=== PATIENT | female | born 1990 | race Two or more races ===

== ENCOUNTER 2019-06-17 16:23 | Emergency (ER) | payer SELFPAY ==
[~2019-06-17] VITALS: Ht 160 cm; Wt 50.8 kg
[2019-06-17 16:45] VITALS: BP 103/55
[2019-06-17 16:55] LABS: BASO % 0 % (0-3); EOS # 0.1 x10^3/uL (0.0-0.7); EOS % 1 % (0-3); HEMATOCRIT 37.1 % (36.0-47.0); HEMOGLOBIN 12.8 g/dL (12.0-15.5); LYMPH # 2.3 x10^3/uL (1.0-4.8); LYMPH % 25 % (24-48); MEAN CORPUSCULAR HEMOGLOBIN 31 pg (25-35); MEAN CORPUSCULAR HGB CONC 34 g/dL (31-37); MEAN CORPUSCULAR VOLUME 88 fL (79-100); MONO # 0.5 x10^3/uL (0.0-1.1); MONO % 6 % (0-9); NEUT # 6.3 x10^3/uL (1.8-7.7); NEUT % 69 % (31-73); PLATELET COUNT 278 x10^3/uL (140-400); RED BLOOD COUNT 4.19 x10^6/uL (3.50-5.40); RED CELL DISTRIBUTION WIDTH 13.2 % (11.5-14.5); WHITE BLOOD COUNT 9.2 x10^3/uL (4.0-11.0)
[2019-06-17 16:56] LABS: BILIRUBIN,URINE NEGATIVE (NEG); CLARITY,URINE CLEAR; COLOR,URINE YELLOW; NITRITE,URINE NEGATIVE (NEG); PH,URINE 5.5; PROTEIN,URINE NEGATIVE (NEG-TRACE); UROBILINOGEN,URINE 0.2 mg/dL (0.2 mg/dL)
[2019-06-17 17:04] LABS: BARBITURATES NEG (NEG); BENZODIAZEPINES NEG (NEG); CANNABINOIDS NEG (NEG); COCAINE NEG (NEG); METHADONE NEG (NEG); OPIATES NEG (NEG); PHENCYCLIDINE NEG (NEG)
[2019-06-17 17:06] LABS: AMPHETAMINE/METHAMPHETAMINE NEG (NEG)
[2019-06-17 17:09] LABS: BACTERIA,URINE FEW /HPF (0-FEW); RBC,URINE 0 /HPF (0-2); SQUAMOUS EPITHELIAL CELL,UR MANY /LPF; YEAST,URINE PRESENT /HPF
[2019-06-17 17:12] LABS: CALCIUM 8.9 mg/dL (8.5-10.1); CREATININE 0.5 mg/dL (0.6-1.0); GFR 149.1; POTASSIUM 3.2 mmol/L (3.5-5.1)
[2019-06-17 17:17] LABS: ALBUMIN 3.8 g/dL (3.4-5.0); TOTAL BILIRUBIN 0.1 mg/dL (0.2-1.0); TOTAL PROTEIN 7.8 g/dL (6.4-8.2)
[2019-06-17] MEDS ORDERED: POTASSIUM CHLORIDE 20 MEQ TABLET.ER. PO ONE ×2 (17:30→18:30)
--- NOTE | 2019-06-17 17:58 | RAD ---
EXAM: OBSTETRIC ULTRASOUND, <14 WEEKS. HISTORY: Vaginal bleeding in . COMPARISON: None. FINDINGS: Sonographic evaluation of the pelvis was performed transabdominally and transvaginally. The uterus is anteverted and measures 9.7 x 5.8 x 6.7 cm. There is a single intrauterine gestation measuring 7 weeks 4 days. heart rate is 168 bpm. A yolk sac is visualized. The gestational sac is regular. There is no subchorionic collection. The right ovary is not visualized. The left ovary measures 2.8 x 2.5 x 1.7 cm. There is normal Doppler flow bilaterally. There is no adnexal mass. There is no significant free fluid. IMPRESSION: 1. Single intrauterine gestation measuring 7 weeks 4 day. heart rate 168 bpm. Electronically signed by: Mary Maldonado MD (06/17/2019 5:55 PM) [facility]
--- NOTE | 2019-06-17 18:22 | PHYS DOC ---
Past Medical History Past Medical History: No Pertinent History Past Surgical History: No Surgical History Alcohol Use: None Drug Use: None Adult General Chief Complaint Chief Complaint: VAGINAL BLEEDING HPI HPI Patient is a 28 year old female 2 para 2 who presented to the ED today concerned she could be , she did a home test which was positive. She is complaining of slight lower back pain as well as lower abdominal pain and trace amount of brownish discharge that began this morning. Denies any nausea or vomiting. Glove Cuffer line was used for [place] Review of Systems Review of Systems Constitutional: Denies fever or chills [] Eyes: Denies change in visual acuity, redness, or eye pain [] HENT: Denies nasal congestion or sore throat [] Respiratory: Denies cough or shortness of breath [] Cardiovascular: No additional information not addressed in HPI [] GI: Reports vaginal bleeding in , abdominal pain, denies nausea, vomiting, bloody stools or diarrhea [] : Denies dysuria or hematuria [] Musculoskeletal: Reports low back pain, joint pain [] Integument: Denies rash or skin lesions [] Neurologic: Denies headache, focal weakness or sensory changes [] All other systems were reviewed and found to be within normal limits, except as documented in this note. Current Medications Current Medications Current Medications Medications (Trade) Dose Ordered Sig/Kimberly Start Time Stop Time Status Last Admin Dose Admin Potassium Chloride (Klor-Con) 40 meq 1X ONCE 06/17/19 17:30 06/17/19 17:31 DC 06/17/19 17:39 40 MEQ Allergies Allergies Allergies Coded Allergies Type Severity Reaction Last Updated Verified No Known Drug Allergies 06/17/19 No Physical Exam Physical Exam Constitutional: Well developed, well nourished, no acute distress, non-toxic appearance. [] HENT: Normocephalic, atraumatic, bilateral external ears normal, oropharynx moist, no oral exudates, nose normal. [] Eyes: PERRLA, EOMI, conjunctiva normal, no discharge. [] Neck: Normal range of motion, no tenderness, supple, no stridor. [] Cardiovascular:Heart rate regular rhythm, no murmur [] Lungs & Thorax: Bilateral breath sounds clear to auscultation [] Abdomen: Bowel sounds normal, soft, no tenderness, no masses, no pulsatile masses. [] Pelvic exam External pelvic appears normal, cervix is visualized, no CMT, no adnexal tenderness, trace amount of brownish discharge in the vaginal vault. Skin: Warm, dry, no erythema, no rash. [] Back: No tenderness, no CVA tenderness. [] Extremities: No tenderness, no cyanosis, no clubbing, ROM intact, no edema. [] Neurologic: Alert and oriented X 3, normal motor function, normal sensory function, no focal deficits noted. [] Psychologic: Affect normal, judgement normal, mood normal. [] Current Patient Data Vital Signs Vital Signs Date Time Temp Pulse Resp B/P (MAP) Pulse Ox O2 Delivery O2 Flow Rate FiO2 06/17/19 16:45 98.0 72 17 103/55 (71) 98 Room Air 98.0 Lab Values Laboratory Tests Test 06/17/19 16:45 06/17/19 16:48 White Blood Count 9.2 x10^3/uL (4.0-11.0) Red Blood Count 4.19 x10^6/uL (3.50-5.40) Hemoglobin 12.8 g/dL (12.0-15.5) Hematocrit 37.1 % (36.0-47.0) Mean Corpuscular Volume 88 fL (79-100) Mean Corpuscular Hemoglobin 31 pg (25-35) Mean Corpuscular Hemoglobin Concent 34 g/dL (31-37) Red Cell Distribution Width 13.2 % (11.5-14.5) Platelet Count 278 x10^3/uL (140-400) Neutrophils (%) (Auto) 69 % (31-73) Lymphocytes (%) (Auto) 25 % (24-48) Monocytes (%) (Auto) 6 % (0-9) Eosinophils (%) (Auto) 1 % (0-3) Basophils (%) (Auto) 0 % (0-3) Neutrophils # (Auto) 6.3 x10^3/uL (1.8-7.7) Lymphocytes # (Auto) 2.3 x10^3/uL (1.0-4.8) Monocytes # (Auto) 0.5 x10^3/uL (0.0-1.1) Eosinophils # (Auto) 0.1 x10^3/uL (0.0-0.7) Basophils # (Auto) 0.0 x10^3/uL (0.0-0.2) Urine Collection Type Unknown Urine Color Yellow Urine Clarity Clear Urine pH 5.5 Urine Specific [place] >=1.030 Urine Protein Negative mg/dL (NEG-TRACE) Urine Glucose (UA) Negative mg/dL (NEG) Urine Ketones (Stick) Negative mg/dL (NEG) Urine Blood Trace (NEG) Urine Nitrite Negative (NEG) Urine Bilirubin Negative (NEG) Urine Urobilinogen Dipstick 0.2 mg/dL (0.2 mg/dL) Urine Leukocyte Esterase Negative (NEG) Urine RBC 0 /HPF (0-2) Urine WBC 1-4 /HPF (0-4) Urine Squamous Epithelial Cells Many /LPF Urine Bacteria Few /HPF (0-FEW) Urine Mucus Marked /LPF Urine Yeast Present /HPF Maternal Serum HCG Beta Subunit 355743 mIU/mL (0-5) H Sodium Level 140 mmol/L (136-145) Potassium Level 3.2 mmol/L (3.5-5.1) L Chloride Level 104 mmol/L (98-107) Carbon Dioxide Level 24 mmol/L (21-32) Anion Gap 12 (6-14) Blood Urea Nitrogen 12 mg/dL (7-20) Creatinine 0.5 mg/dL (0.6-1.0) L Estimated GFR (Cockcroft-Gault) 149.1 BUN/Creatinine Ratio 24 (6-20) H Glucose Level 106 mg/dL (70-99) H Calcium Level 8.9 mg/dL (8.5-10.1) Total Bilirubin 0.1 mg/dL (0.2-1.0) L Aspartate Amino Transferase (AST) 17 U/L (15-37) Alanine Aminotransferase (ALT) 17 U/L (14-59) Alkaline Phosphatase 60 U/L (46-116) Total Protein 7.8 g/dL (6.4-8.2) Albumin 3.8 g/dL (3.4-5.0) Albumin/Globulin Ratio 1.0 (1.0-1.7) Urine Opiates Screen Neg (NEG) Urine Methadone Screen Neg (NEG) Urine Barbiturates Neg (NEG) Urine Phencyclidine Screen Neg (NEG) Urine Amphetamine/Methamphetamine Neg (NEG) Urine Benzodiazepines Screen Neg (NEG) Urine Cocaine Screen Neg (NEG) Urine Cannabinoids Screen Neg (NEG) Ethyl Alcohol Level < 10 mg/dL (0-10) Urine Ethyl Alcohol Neg (NEG) POC Urine HCG, Qualitative Hcg positive (Negative) Laboratory Tests 06/17/19 16:45 Laboratory Tests 06/17/19 16:45 Microbiology 06/17/19 Wet Prep - Final, Complete EKG EKG [] Radiology/Procedures Radiology/Procedures []PROCEDURE: OB < 14 WKS EXAM: OBSTETRIC ULTRASOUND, <14 WEEKS. HISTORY: Vaginal bleeding in . COMPARISON: None. FINDINGS: Sonographic evaluation of the pelvis was performed transabdominally and transvaginally. The uterus is anteverted and measures 9.7 x 5.8 x 6.7 cm. There is a single intrauterine gestation measuring 7 weeks 4 days. heart rate is 168 bpm. A yolk sac is visualized. The gestational sac is regular. There is no subchorionic collection. The right ovary is not visualized. The left ovary measures 2.8 x 2.5 x 1.7 cm. There is normal Doppler flow bilaterally. There is no adnexal mass. There is no significant free fluid. IMPRESSION: 1. Single intrauterine gestation measuring 7 weeks 4 day. heart rate 168 bpm. Electronically signed by: Mary Maldonado MD (06/17/2019 5:55 PM) [facility] DICTATED and SIGNED BY: CARLOS MALDONADO MD DATE: 06/17/191754 Course & Med Decision Making Course & Med Decision Making Pertinent Labs and Imaging studies reviewed. (See chart for details) This is a 28-year-old female patient 2 para 2 presenting to the ED today concerned she could be , she is also complaining of abdominal pain, vaginal bleeding and low back pain that began today. Positive urine hCG, beta-hCG [id number], CBC with no acute findings, CMP with K of 3.2 oral K provided. Pelvic exam with trace brownish discharge. UA negative for UTI, Wet prep noted for yeast infection-discharged with OTC Miconazole. OB ultrasound noted for IUP 7 weeks 4 days heart rate 168. Blood group O+. Patient was provided instructions concerning pelvic rest. Discharged to home. Provided OB for follow-up. Provided return precautions, interpreter deaf line used for [place] [employer] Disclaimer Dragon Disclaimer This electronic medical record was generated, in whole or in part, using a voice recognition dictation system. Departure Departure Impression: Primary Impression: , threatened Additional Impressions: Vaginal yeast infection Disposition: 01 HOME, SELF-CARE Condition: STABLE Referrals: NO PCP (PCP) CARLOS DE LOS SANTOS MD follow up in 1-2 days Patient Instructions: ABCs of , Threatened Miscarriage, [id number] Additional Instructions: You were evaluated in the emergency room for abdominal pain in , you are 7 weeks 4 days . You have a yeast infection, use [id number] miconazole to clear this infection, prescription was provided to you. We provided you an TEMPLATE CHECKER, contact them tomorrow and follow-up. Please maintain bed rest, no sexual intercourse, no heavy lifting or strenuous activities until seen by the OB or the bleeding has completely stopped. Scripts Miconazole/Skin Cleanser No.17 (Miconazole 3 Kit) 1 Each Kit 1 EACH VG 1X, #1 EACH Prov: KELSEY SCHAFER APRN 06/17/19 Problem Qualifiers Additional Impressions: Weeks of gestation: less than 8 weeks Qualified Codes: Z3A.01 - Less than 8 weeks gestation of KELSEY SCHAFER APRN Jun 17, 2019 18:22
[2019-06-17] MEDS ORDERED: MICO1KIT VG (18:31)
[2019-06-18 18:11] LABS: GC PROBE Negative (Negative)
== END 2019-06-17 18:57 | disposition home or self-care (01) ==
LOC: ER 16:23
DX: O20.0 Threatened abortion (principal); B37.3 Candidiasis of vulva and vagina; Z3A.01 Less than 8 weeks gestation of pregnancy
CPT/HCPCS: 36415; 76801; 80053; 80307; 81001; 81025; 84702; 85025; 86850; 86900; 86901; 87491; 87591; 99285; G0480; Q0111